=== PATIENT | male | born 1975 | race Caucasian/White ===

== ENCOUNTER → 2018-09-26 | Outpatient (CLI) | payer OTHER ==
[~2018-09-26] MED LIST: ALBIPROI; ALBU90OI; CALCA500CH; CLIN300 PO; DOXY100 PO; ESCI20 PO; FLUSAL2505; HYDACE5 PO; Lisinopril2.5 MG PO; METO25ER PO; METO50ER; METPRE4DP PO; NAPR500 PO; OMEP40CA12 PO; OXYACE7.5T PO; PROACE100 PO; RANI150; RXPROACE PO; SERT100 PO; Sulfamethoxazo1 EAC4 PO; TRIHYD253B PO; Vyvanse50 MG PO
[2018-09-26 17:12] LABS: U Amphetamine Screen Not Detected; U Barbituate Screen Not Detected; U Benzodiazapine Screen Not Detected; U Buprenorphine Screen Not Detected; U Cannabinoids Screen Not Detected; U Cocaine Screen Not Detected; U Methadone Screen Not Detected; U Methamphetamine Screen Not Detected; U Opiates Screen Not Detected; U Oxycodone Screen Not Detected; U Phencyclidine Screen Not Detected; U Propoxyphene Screen Not Detected
== END ==
LOC: LAB SHORT 14:45 → LAB 14:45
PROVIDERS: Registered Nurse
DX: Z51.81 Encounter for therapeutic drug level monitoring (principal); Z79.899 Other long term (current) drug therapy